=== PATIENT | male | born 1990 | race Caucasian/White ===

== ENCOUNTER 2019-10-23 11:24 | Outpatient (REF) | payer MEDICAID, SELFPAY ==
[2019-10-24 10:07] LABS: HBs Antibody, Quant 492.3 mIU/mL (See Note); Hepatitis B Surface Ab Positive (See Note)
[2019-10-24 10:28] LABS: Hepatitis B Surface Ag Negative (Negative)
[2019-10-24 11:15] LABS: HIV-1/2 Ag & Ab Screen Negative (Negative)
[2019-10-24 11:16] LABS: Hep B Core Antibody Negative (Negative); Hepatitis C Ab w Rflx HCV PCR Reactive (Negative)
[2019-10-24 11:46] LABS: Hep A Total Ab w Rflx IgM Negative (Negative)
[2019-10-25 08:52] LABS: ALT 293 U/L (7-55); ActiTest Grade A3; ActiTest Interpretation severe activity; ActiTest Score 0.89; Alpha-2-Macroglobulin 225 mg/dL (100 - 280); Apoliprotein A1 161 mg/dL (>=120); Bilirubin, Total 0.6 mg/dL (<=1.2); FibroTest Interpretation minimal fibrosis; FibroTest Score 0.27; FibroTest Stage F1; GGT 56 U/L (8 - 61); Haptoglobin 67 mg/dL (30 - 200)
[2019-10-25 16:39] LABS: HCV Genotype 1a (Undetected)
== END 2019-10-23 11:44 ==
LOC: NCHCN 11:24
PROVIDERS: PCP Family Medicine; Visit Provider Family Medicine
DX: B19.20 Unspecified viral hepatitis C without hepatic coma (principal); Z11.4 Encounter for screening for human immunodeficiency virus [HIV]; Z01.84 Encounter for antibody response examination
CPT/HCPCS: 81596; 86704; 86706; 86709; 86803; 87340; 87389; 87521; 87522

== ENCOUNTER 2019-11-11 15:50 | Outpatient (REF) | payer MEDICAID, SELFPAY ==
[2019-11-14 12:34] LABS: Benzoylecgonine Negative ng/mL (Cutoff: 50); Cocaine Negative ng/mL (Cutoff: 50); Cocaine Interpretation Negative.
== END 2019-11-11 16:10 ==
LOC: NCHCN 15:50
PROVIDERS: PCP Family Medicine; Visit Provider Family Medicine
DX: F11.20 Opioid dependence, uncomplicated (principal)
CPT/HCPCS: 80353

== ENCOUNTER 2019-11-27 10:58 | Outpatient (REF) | payer MEDICAID, SELFPAY ==
[2019-11-27 19:47] LABS: ALT 302 U/L (16-63); AST 182 U/L (15-37); Albumin 4.5 g/dL (3.4-5.0); Alkaline Phosphatase 64 U/L (46-116); Anion Gap 9.2 mmol/L (3-11); BUN 11 mg/dL (7-18); Bilirubin, Total 0.7 mg/dL (0.2-1.0); CO2 28.8 mmol/L (21.0-32.0); CREATININE 0.79 mg/dL (0.70-1.30); Calcium 9.3 mg/dL (8.5-10.1); Chloride 104 mmol/L (98-107); Glucose 86 mg/dL (74-106); Potassium 4.6 mmol/L (3.5-5.1); Sodium 142 mmol/L (136-145); Total Protein 7.9 g/dL (6.4-8.2)
== END 2019-11-27 11:18 ==
LOC: NCHCN 10:58
PROVIDERS: PCP Family Medicine; Visit Provider Family Medicine
DX: B19.20 Unspecified viral hepatitis C without hepatic coma (principal)
CPT/HCPCS: 80053

== ENCOUNTER 2020-07-29 14:39 | Outpatient (REF) | payer MEDICAID, SELFPAY ==
[2020-07-29 20:53] LABS: ALT 16 U/L (16-63); AST 20 U/L (15-37); Albumin 4.3 g/dL (3.4-5.0); Alkaline Phosphatase 67 U/L (46-116); Bilirubin, Direct 0.11 mg/dL (0.00-0.20); Bilirubin, Total 0.5 mg/dL (0.2-1.0); Total Protein 7.7 g/dL (6.4-8.2)
[2020-07-31 12:52] LABS: HCV RNA Qualitative Undetected (Undetected)
== END 2020-07-29 14:59 ==
LOC: NCHCN 14:39
PROVIDERS: PCP Family Medicine; Visit Provider Family Medicine
DX: B19.20 Unspecified viral hepatitis C without hepatic coma (principal)
CPT/HCPCS: 80076; 87522

== ENCOUNTER 2020-09-02 20:09 | Outpatient (REF) | payer MEDICAID, SELFPAY ==
[2020-09-17 15:11] LABS: Ethyl Glucuronide Screen, U Negative
== END 2020-09-02 20:29 ==
LOC: NCHCN 20:09
PROVIDERS: PCP Family Medicine; Visit Provider Family Medicine
DX: F11.20 Opioid dependence, uncomplicated (principal)
CPT/HCPCS: 80307

== ENCOUNTER 2020-10-15 01:13 | Outpatient (CLI) | payer MEDICAID, SELFPAY ==
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
== END 2020-10-15 01:33 ==
PROVIDERS: PCP Family Medicine; Visit Provider Family Medicine
DX: S12.9XXS Fracture of neck, unspecified, sequela (principal); M54.2 Cervicalgia
CPT/HCPCS: 72052

== ENCOUNTER 2020-11-25 20:32 | Outpatient (REF) | payer MEDICAID, SELFPAY ==
[2020-12-01 11:58] LABS: Benzoylecgonine 217 ng/mL (Cutoff: 50); Cocaine Negative ng/mL (Cutoff: 50); Cocaine Interpretation Positive.
== END 2020-11-25 20:33 | disposition home or self-care (01) ==
LOC: NCHCN 20:32
PROVIDERS: PCP Family Medicine; Visit Provider Family Medicine
DX: F11.20 Opioid dependence, uncomplicated (principal)
CPT/HCPCS: 80353

== ENCOUNTER 2021-09-03 21:44 | Outpatient (REF) | payer MEDICAID, SELFPAY ==
[2021-09-05 21:01] LABS: COVID-19 RT-PCR UVMMC Result Positive (Negative)
[2021-09-11 01:59] LABS: Fentanyl Interpretation Positive.; Fentanyl by LC-MS/MS 0.7 ng/mL; Norfentanyl by LC-MS/MS 6.1 ng/mL
== END 2021-09-03 21:45 | disposition home or self-care (01) ==
LOC: NCHCN 21:44
PROVIDERS: PCP Family Medicine; Visit Provider Family Medicine
DX: Z20.822 Contact with and (suspected) exposure to COVID-19 (principal); R09.89 Other specified symptoms and signs involving the circulatory and respiratory systems; F11.20 Opioid dependence, uncomplicated
CPT/HCPCS: U0003; 80354

== ENCOUNTER 2022-03-15 03:06 | Outpatient (CLI) | payer MEDICAID, SELFPAY | END 2022-03-15 03:07 | disposition home or self-care (01) | LOC: LBO 03:06 | PROVIDERS: PCP Family Medicine; Visit Provider Nurse Practitioner Gerontology ==

== ENCOUNTER 2023-12-30 09:41 | Emergency (ER) | payer MEDICAID, SELFPAY ==
[2023-12-30 09:44] VITALS: BP 114/79; PULSE 88; RESP 18; TEMP 36.9; O2SAT 99
--- NOTE | 2023-12-30 09:45 | DI.RAD_ITS ---
Exam(s) XR RIBS LT W PA LAT CHEST EXAM: XR RIBS LT W PA LAT CHEST CLINICAL HISTORY: Posterior lateral rib trauma. TECHNIQUE: 2D digital imaging was performed. COMPARISON: No exams were available for comparison FINDINGS: 7 views: Left ribs 5 views: There is nondisplaced fracture of the left 7th rib. There is a mildly displaced fr acture of the left 8th rib. There is a nondisplaced fracture of the 9th rib. Chest x-ray-two views: Heart size normal. Mediastinum not widened. Lungs are clear. No infiltrates no r lung contusions. No pneumothorax. No pleural effusions. IMPRESSION: Left 7th, 8th, and 9th rib fractures. No acute pulmonary findings. No pneumothorax. DATA REPOSITORY: RADIATION DOSE DELIVERED:
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
[2023-12-30] MEDS: Ketorolac 30 MG/ML VIAL IM (10:05)
[2023-12-30] MEDS: Lidocaine 5% Patch 1 PATCH TP (10:37)
[2023-12-30 13:05] VITALS: BP 137/83; PULSE 78; RESP 16; O2SAT 100
== END 2023-12-30 13:05 | disposition home or self-care (01) ==
PROVIDERS: Emergency Provider Nurse Practitioner Family; PCP Family Medicine
DX: S22.42XA Multiple fractures of ribs, left side, initial encounter for closed fracture (principal); S20.312A Abrasion of left front wall of thorax, initial encounter; F17.210 Nicotine dependence, cigarettes, uncomplicated; W17.89XA Other fall from one level to another, initial encounter; Y93.89 Activity, other specified; Y92.89 Other specified places as the place of occurrence of the external cause; Y99.0 Civilian activity done for income or pay
CPT/HCPCS: 96372; 99284; 71046; 71100; J1885